=== PATIENT | female | born 1960 | race Caucasian/White ===

== ENCOUNTER 2018-04-14 05:59 | Inpatient (IN) | payer OTHER ==
[~2018-04-14] VITALS: Ht 160 cm; Wt 101.0 kg
[2018-04-14 07:31] LABS: PLATELET COUNT 297 x10^3mcL (130-400)
[2018-04-14 07:34] LABS: BASOPHIL % 0 % (0-2); RED CELL DISTRIBUTION WIDTH 14.7 % (11.5-14.5)
[2018-04-14 07:39] LABS: CALCIUM 8.7 mg/dL (8.5-10.1); CHLORIDE SERUM 94 mmol/L (98-107); CREATININE SERUM 0.5 mg/dL (0.6-1.0); GFR1 > 60 mL/min; GLUCOSE SERUM 148 mg/dL (74-106); POTASSIUM SERUM 3.6 mmol/L (3.5-5.1); SODIUM SERUM 128 mmol/L (136-145)
[2018-04-14 07:43] LABS: ALBUMIN 3.8 g/dL (3.4-5.0); ALKALINE PHOSPHATASE 92 U/L (46-116); ALT/SGPT 22 U/L (14-59); AST/SGOT 26 U/L (15-37); BILIRUBIN TOTAL 0.55 mg/dL (0.20-1.00); TOTAL PROTEIN, SERUM 7.2 g/dL (6.4-8.2)
[2018-04-14] MEDS ORDERED: SIMVASTATIN20 M1 (08:08)
[2018-04-14] MEDS ORDERED: TRADJENTA5 M1 (08:08)
[2018-04-14] MEDS ORDERED: HCTZ/LISINOPRIL1 TA2 (08:08)
[2018-04-14 09:31] LABS: MAGNESIUM 1.7 mg/dL (1.8-2.4); PHOSPHOROUS 3.4 mg/dL (2.5-4.9)
[2018-04-14 09:38] LABS: FREE THYROXINE INDEX 2.3 ug/dL (1.4-4.5); T4(THYROXINE) 6.7 ug/dL (4.7-13.3)
[2018-04-14 10:02] LABS: CHOLESTEROL/HDL RATIO 2.3
[2018-04-14 11:17] VITALS: BP 119/56
[2018-04-14 12:59] LABS: microscopic required? NO
[2018-04-14 13:00] VITALS: BP 154/57
[2018-04-14 13:08] LABS: UA SPECIFIC GRAVITY 1.025 (1.005-1.035); urine erythrocyte NEGATIVE (NEGATIVE)
[2018-04-14 13:25] LABS: AMPHETAMINE QUAL UR NONE DETECTED (See below)
[2018-04-14 17:18] VITALS: BP 126/56
[2018-04-14 20:55] VITALS: BP 121/62
[2018-04-15 06:37] VITALS: BP 103/52
[2018-04-15 08:26] VITALS: BP 96/50
[2018-04-15 21:16] VITALS: BP 102/46
[2018-04-16 06:13] VITALS: BP 117/49
[2018-04-16 06:48] LABS: CALCIUM 8.2 mg/dL (8.5-10.1); CARBON DIOXIDE 22.5 mmol/L (21-32); CHLORIDE SERUM 98 mmol/L (98-107); CREATININE SERUM 0.6 mg/dL (0.6-1.0); GFR1 > 60 mL/min; GLUCOSE SERUM 153 mg/dL (74-106); MAGNESIUM 1.8 mg/dL (1.8-2.4); PHOSPHOROUS 2.7 mg/dL (2.5-4.9); POTASSIUM SERUM 3.1 mmol/L (3.5-5.1); SODIUM SERUM 132 mmol/L (136-145)
[2018-04-16 07:03] LABS: BASOPHIL % 0.4 % (0-2); PLATELET COUNT 252 x10^3mcL (130-400)
[2018-04-16 09:11] VITALS: BP 136/64
[2018-04-16 17:20] VITALS: BP 119/55
[2018-04-16 20:40] VITALS: BP 126/62
[2018-04-17 05:52] VITALS: BP 113/61
[2018-04-17 07:20] LABS: CALCIUM 8.4 mg/dL (8.5-10.1); CARBON DIOXIDE 27.7 mmol/L (21-32); CHLORIDE SERUM 99 mmol/L (98-107); CREATININE SERUM 0.5 mg/dL (0.6-1.0); GFR1 > 60 mL/min; GLUCOSE SERUM 122 mg/dL (74-106); SODIUM SERUM 134 mmol/L (136-145)
[2018-04-17 07:35] LABS: BASOPHIL % 0.2 % (0-2); PLATELET COUNT 229 x10^3mcL (130-400); RED CELL DISTRIBUTION WIDTH 14.2 % (11.5-14.5)
[2018-04-17 08:39] VITALS: BP 115/60
[2018-04-17 17:07] VITALS: BP 110/43
[2018-04-17 20:57] VITALS: BP 113/58
[2018-04-18 06:12] VITALS: BP 115/59
[2018-04-18 07:07] LABS: CALCIUM 8.4 mg/dL (8.5-10.1); CARBON DIOXIDE 30.8 mmol/L (21-32); CHLORIDE SERUM 98 mmol/L (98-107); CREATININE SERUM 0.4 mg/dL (0.6-1.0); GFR1 > 60 mL/min; GLUCOSE SERUM 106 mg/dL (74-106); POTASSIUM SERUM 3.4 mmol/L (3.5-5.1); SODIUM SERUM 133 mmol/L (136-145)
[2018-04-18 07:40] LABS: BASOPHIL % 0.4 % (0-2); PLATELET COUNT 243 x10^3mcL (130-400); RED CELL DISTRIBUTION WIDTH 14.3 % (11.5-14.5)
[2018-04-18 08:58] VITALS: BP 119/51
[2018-04-18 17:30] VITALS: BP 152/60
[2018-04-18 18:20] VITALS: BP 118/71
[2018-04-18 20:54] VITALS: BP 119/68
[2018-04-19 01:05] VITALS: Ht 160 cm; Wt 101.0 kg
[2018-04-19 05:38] VITALS: BP 111/57
[2018-04-19 07:47] LABS: CALCIUM 8.6 mg/dL (8.5-10.1); CARBON DIOXIDE 25.7 mmol/L (21-32); CREATININE SERUM 0.6 mg/dL (0.6-1.0); GFR1 > 60 mL/min; GLUCOSE SERUM 152 mg/dL (74-106)
[2018-04-19 08:05] LABS: CHLORIDE SERUM 99 mmol/L (98-107); POTASSIUM SERUM 3.7 mmol/L (3.5-5.1); SODIUM SERUM 131 mmol/L (136-145)
[2018-04-19 09:48] VITALS: BP 112/57
[2018-04-19 10:15] LABS: BASOPHIL % 0.2 % (0-2); PLATELET COUNT 275 x10^3mcL (130-400)
[2018-04-19 10:18] LABS: RED CELL DISTRIBUTION WIDTH 14.6 % (11.5-14.5)
[2018-04-19] MEDS ORDERED: KEFLEX500 M1 PO (15:01)
[2018-04-19] MEDS ORDERED: APAP/HYDROCODON1 T13 PO (15:02)
[2018-04-19 16:13] VITALS: BP 112/57
== END 2018-04-19 17:05 | disposition home or self-care (01) | DRG 493 ==
LOC: ED 05:59 → MU 07:34
PROVIDERS: Emergency Medicine; Internal Medicine; Neuromusculoskeletal Medicine, Sports Medicine
PROC: 01N60ZZ Release Radial Nerve, Open Approach (ICD-10-PCS; 2018-04-15)
PROC: 0PUG07Z Supplement Left Humeral Shaft with Autologous Tissue Substitute, Open Approach (ICD-10-PCS; 2018-04-15)
PROC: 0PSG04Z Reposition Left Humeral Shaft with Internal Fixation Device, Open Approach (ICD-10-PCS; principal; 2018-04-15 13:00)
PROC: 0PSD04Z Reposition Left Humeral Head with Internal Fixation Device, Open Approach (ICD-10-PCS; 2018-04-18)
DX: S42.342A Displaced spiral fracture of shaft of humerus, left arm, initial encounter for closed fracture (principal); E87.1 Hypo-osmolality and hyponatremia; D62 Acute posthemorrhagic anemia; S42.252A Displaced fracture of greater tuberosity of left humerus, initial encounter for closed fracture; S20.212A Contusion of left front wall of thorax, initial encounter; E11.9 Type 2 diabetes mellitus without complications; S44.22XA Injury of radial nerve at upper arm level, left arm, initial encounter; S80.02XA Contusion of left knee, initial encounter; S80.01XA Contusion of right knee, initial encounter; E87.6 Hypokalemia; E66.01 Morbid (severe) obesity due to excess calories; I10 Essential (primary) hypertension; W18.39XA Other fall on same level, initial encounter; Y93.89 Activity, other specified; Y92.018 Other place in single-family (private) house as the place of occurrence of the external cause; Z68.39 Body mass index [BMI] 39.0-39.9, adult
CPT/HCPCS: 76001; 82962; 83880; 84439; 94150; 97530-GP; C1713; J0690; J1170; J2270; J2405; J2550; J2704; J2710; J3010; J3490; J7030; J7050; P9016; Q0092; Q0162

== ENCOUNTER → 2018-05-26 | Outpatient (CLI) | payer OTHER ==
[~2018-05-26] MED LIST: APAP/HYDROCODON1 T13 PO; HCTZ/LISINOPRIL1 TA2; KEFLEX500 M1 PO; SIMVASTATIN20 M1; TRADJENTA5 M1
== END | disposition home or self-care (01) ==
LOC: RD 09:05
DX: S42.302D Unspecified fracture of shaft of humerus, left arm, subsequent encounter for fracture with routine healing (principal); X58.XXXD Exposure to other specified factors, subsequent encounter

== ENCOUNTER 2020-02-18 17:24 | Inpatient (IN) | payer OTHER ==
[~2020-02-18] VITALS: Ht 160 cm; Wt 95.0 kg
[2020-02-18 18:42] LABS: BASOPHIL % 0.4 % (0-2); PLATELET COUNT 384 x10^3mcL (130-400); RED CELL DISTRIBUTION WIDTH 13.9 % (11.5-14.5)
[2020-02-18 18:53] LABS: ALBUMIN 3.6 g/dL (3.4-5.0); BILIRUBIN TOTAL 0.4 mg/dL (0.20-1.00); CALCIUM 9.4 mg/dL (8.5-10.1); CARBON DIOXIDE 18.8 mmol/L (21-32)
[2020-02-18 18:54] LABS: POTASSIUM SERUM 1.5 mmol/L (3.5-5.1); TOTAL PROTEIN, SERUM 8.6 g/dL (6.4-8.2)
[2020-02-18 19:14] LABS: microscopic required? NO
[2020-02-18 19:19] LABS: urine erythrocyte NEGATIVE (NEGATIVE)
[2020-02-18] MEDS ORDERED: TRADJENTA5 M1 (20:07)
[2020-02-18] MEDS ORDERED: ZESTRIL2.5 MG (20:07)
[2020-02-18 21:08] VITALS: BP 121/72
[2020-02-18 21:12] VITALS: Ht 160 cm; Wt 95.0 kg
[2020-02-19 04:31] VITALS: BP 109/56
[2020-02-19 06:41] LABS: BASOPHIL % 0.4 % (0-2); PLATELET COUNT 378 x10^3mcL (130-400); RED CELL DISTRIBUTION WIDTH 13.5 % (11.5-14.5)
[2020-02-19 06:44] LABS: ALKALINE PHOSPHATASE 74 U/L (46-116); ALT/SGPT 18 U/L (14-59); AST/SGOT 17 U/L (15-37); BILIRUBIN TOTAL 0.5 mg/dL (0.20-1.00); CALCIUM 9.1 mg/dL (8.5-10.1); CARBON DIOXIDE 21.4 mmol/L (21-32); CHLORIDE SERUM 100 mmol/L (98-107); CREATININE SERUM 0.8 mg/dL (0.6-1.0); GFR1 > 60 mL/min; GLUCOSE SERUM 111 mg/dL (74-106); SODIUM SERUM 134 mmol/L (136-145); TOTAL PROTEIN, SERUM 8.2 g/dL (6.4-8.2)
[2020-02-19 07:42] LABS: ALBUMIN 3.2 g/dL (3.4-5.0); POTASSIUM SERUM 2.2 mmol/L (3.5-5.1)
[2020-02-19 09:10] VITALS: BP 110/60
[2020-02-19 13:28] VITALS: BP 117/60
[2020-02-19 17:30] VITALS: BP 120/68; BP 135/71
[2020-02-19 22:56] VITALS: BP 139/70
[2020-02-20 05:27] VITALS: BP 109/58
[2020-02-20 06:59] LABS: BASOPHIL % 0.4 % (0-2); PLATELET COUNT 321 x10^3mcL (130-400)
[2020-02-20 07:02] LABS: RED CELL DISTRIBUTION WIDTH 14.6 % (11.5-14.5)
[2020-02-20 07:15] LABS: ALKALINE PHOSPHATASE 70 U/L (46-116); ALT/SGPT 18 U/L (14-59); AST/SGOT 16 U/L (15-37); BILIRUBIN TOTAL 0.4 mg/dL (0.20-1.00); CALCIUM 8.9 mg/dL (8.5-10.1); CARBON DIOXIDE 19.9 mmol/L (21-32); CHLORIDE SERUM 103 mmol/L (98-107); CREATININE SERUM 0.7 mg/dL (0.6-1.0); GFR1 > 60 mL/min; GLUCOSE SERUM 111 mg/dL (74-106); MAGNESIUM 1.9 mg/dL (1.8-2.4); SODIUM SERUM 135 mmol/L (136-145); TOTAL PROTEIN, SERUM 7.6 g/dL (6.4-8.2)
[2020-02-20 07:18] LABS: ALBUMIN 3.1 g/dL (3.4-5.0)
[2020-02-20 09:18] VITALS: BP 120/70
[2020-02-20] MEDS ORDERED: K-TAB20 MEQ PO (09:24)
[2020-02-20 13:41] VITALS: BP 125/52
[2020-02-20 17:32] VITALS: BP 112/72
[2020-02-20 17:53] VITALS: BP 112/72
[2020-02-20 20:47] LABS: CREATININE UR 47.1 mg/dL (0.60-1.80)
== END 2020-02-20 18:35 | disposition home or self-care (01) | DRG 641 ==
LOC: ED 17:24 → DU 19:53
PROVIDERS: Emergency Medicine; Internal Medicine Nephrology; ADMIT Internal Medicine Pulmonary Disease; ATTEND Internal Medicine Pulmonary Disease
DX: E87.6 Hypokalemia (principal); E66.9 Obesity, unspecified; E78.5 Hyperlipidemia, unspecified; Z68.37 Body mass index [BMI] 37.0-37.9, adult; E11.65 Type 2 diabetes mellitus with hyperglycemia; E87.1 Hypo-osmolality and hyponatremia; Z88.8 Allergy status to other drugs, medicaments and biological substances; Z91.018 Allergy to other foods; Z79.899 Other long term (current) drug therapy; Z79.84 Long term (current) use of oral hypoglycemic drugs
CPT/HCPCS: 82962; G0378; J3475; J3480; J7030; Q0092

== ENCOUNTER 2020-05-15 12:07 | Inpatient (IN) | payer OTHER, SELFPAY ==
[~2020-05-15] VITALS: Ht 160 cm; Wt 97.5 kg
[~2020-05-15 12:07] MED LIST changes: +K-TAB20 MEQ PO; +ZESTRIL2.5 MG
[2020-05-15 12:16] VITALS: Ht 160 cm; Wt 97.5 kg
--- NOTE | 2020-05-15 12:20 | NUR ---
PT BIB [facility] C/O NAUSEA AND VOMITING X 1 DAY. MEDIC REPORTS GENERALIZED WEAKNESS X 1 DAY. PER MEDIC, PT WAS STANDING UP WHEN SHE FELT WEAK AND FELL TO HER KNEES. MEDIC REPORTS PT WAS NOT ABLE TO GET BACK UP ON HER OWN. PT DENIES HEAD INJURY OR LOC DURING FALL. PT SPEAKING IN FULL, CLEAR SENTENCES. PT C/O VOMITING X 1 DAY. PER PT VOMIT WAS "CLEAR AND WHATEVER I LAST ATE". PT DENIES ANY HEADACHES OR DIZZINESS. PER PT "I FEEL LIKE I HAVE THE FLU". PT AAOX4, RESP E/U. PT NOTED UNABLE TO MOVE LEGS OR ARMS ON HER OWN AT THIS TIME. PT GOWNED AND PLACED ON FULL CM,NSR NOTED. WILL CONTINUE TO MONITOR
--- NOTE | 2020-05-15 12:26 | NUR ---
DR BOBO AT THE BEDSIDE FOR MSE TO PT.
[2020-05-15 13:23] LABS: RED CELL DISTRIBUTION WIDTH 16.7 % (11.5-14.5)
--- NOTE | 2020-05-15 13:30 | NUR ---
REPORT GIVEN TO JUAN FRANCISCO RIOS. SHE WILL ASSUME FURTHER CARE OF THIS PT
[2020-05-15 13:50] LABS: ALBUMIN 3.8 g/dL (3.4-5.0); ALKALINE PHOSPHATASE 115 U/L (46-116); ALT/SGPT 22 U/L (14-59); AST/SGOT 20 U/L (15-37); BILIRUBIN TOTAL 0.4 mg/dL (0.20-1.00); C REACTIVE PROTEIN 3.3 mg/dL (<=0.9); CALCIUM 10.2 mg/dL (8.5-10.1); CARBON DIOXIDE 14.1 mmol/L (21-32); CHOLESTEROL 145 mg/dL (<200); GFR1 60 mL/min; GLUCOSE SERUM 186 mg/dL (74-106); HDL CHOLESTEROL 54 mg/dL (40-60); LACTIC DEHYDROGENASE (LDH) 124 U/L (100-190); LIPASE 70 IU/L (73-393); MAGNESIUM 2.6 mg/dL (1.8-2.4); T4(THYROXINE) 8.6 ug/dL (4.7-13.3)
--- NOTE | 2020-05-15 14:03 | NUR ---
PT TO BE ADMITTED FOR GENERAL WEAKNESS; CRITICAL RESULT RECD; UPDATED PROVIDER; PT COMPLETED CT, JOHN WELL
[2020-05-15 14:09] LABS: UA SPECIFIC GRAVITY 1.015 (1.005-1.035); microscopic required? YES; urine erythrocyte 2+ (NEGATIVE)
[2020-05-15 14:11] LABS: BAND NEUTROPHIL 2 % (0-10); MONOCYTE 3 % (0-7); SEGMENTED NEUTROPHILS 87 % (37-75); rbc morphology (normal/abnorm) NORMAL (NORMAL)
[2020-05-15 14:19] LABS: TOTAL PROTEIN, SERUM 8.9 g/dL (6.4-8.2)
--- NOTE | 2020-05-15 14:19 | NUR ---
REPORT RECEIVED FROM JUAN FRANCISCO RIOS. I WILL ASSUME FURTHER CARE OF THIS PT
[2020-05-15 14:25] LABS: PLATELET COUNT 563 x10^3mcL (130-400)
[2020-05-15 14:37] LABS: SODIUM SERUM 137 mmol/L (136-145)
[2020-05-15 14:38] LABS: CHLORIDE SERUM 10 mmol/L (98-107)
[2020-05-15 14:40] LABS: AMPHETAMINE QUAL UR NONE DETECTED (See below)
[2020-05-15] MEDS ORDERED: ZESTRIL2.5 MG PO (14:47)
--- NOTE | 2020-05-15 15:09 | NUR ---
PT RETURNED TO ER FLOOR FROM CT
--- NOTE | 2020-05-15 15:30 | NUR ---
PT HR NOTED DROPPING TO 20-29 BPM. PT STATES "I JUST FEEL REALLY NAUSEOUS RIGHT NOW". PT DENIES ANY PAIN AT THIS TIME. PT SPEAKING IN FULL, CLEAR SENTENCES, NO DISTRESS NOTED. RESP E/U. O2SAT NOTED AT 98%. PT HR NOTED BACK UP AT 80BPM AT THIS TIME. MD AWARE. NO CHANGE IN ORDERS. WILL CONTINUE TO MONITOR
--- NOTE | 2020-05-15 15:50 | NUR ---
SPOKE WITH DR CAMILO , ADMITTING DR REGARDING PT STATUS. INFORMED MD OF CRITICAL LAB VALUES, POTASSIUM 1.1 AND REDRAWM POTASSIUM OF 1.0. PER VERBAL ORDER FROM DR CAMILO, START D5 1/5 40MEQ POTASSIUM IV INFUSION NOW AND GIVE 40MEQ POTASSIUM PO NOW, STOP NORMAL SALINE BOLUS THAT IS CURRENTLY RUNNING WHEN STARTING D5 1/2 40MEQ POTASSIUM INFUSION.
--- NOTE | 2020-05-15 16:00 | NUR ---
WHILE AT THE BEDSIDE DISCUSSING PLAN OF CARE WITH PT, PT HEART RATE NOTED DROPPING TO 17BMP. PT STATES "I FEEL LIKE I NEED TO THROW UP". PT DENIES ANY PAIN. PT SPEAKING IN FULL, CLEAR SENTENCES, PT AAOX4, RESP E/U, NO DISTRESS NOTED. MYSELF AND JUAN FRANCISCO URIBE AT THE BEDSIDE. PT HEART RATE NOTED AT 70BPM FOLLOWING EPISODE OF NAUSEA BEFORE LEAVING PT ROOM. MD AWARE. WILL CONTINUE TO MONITOR.
--- NOTE | 2020-05-15 16:25 | NUR ---
CONFIRMED WITH DR CAMILO TO GIVE PO POTASSIUM 20MEQ AND TO INFUSE D5 1/2 NS 40MEQ AT 80ML/HR. INFORMED DR CAMILO OF PERIODS OF BRADYCARDIA AT 16-20BPM . PER DR CAMILO, CONFIRMED HE WANTS TO ADMIT PATIENT TO TELE UNIT VERSUS ICU WITH BRADYCARDIA EPISODES AND 1.[address]. [address] CAMILO, "HOLD ON K* RIDER PRN UNTIL BNP REDRAW AT 1800." ACCOUNTS PAYABLE TECHNICIAN MIGUEL AND MT PJ MADE AWARE. CALL TRANSFERRED TO ER MD DR GERARDO.
--- NOTE | 2020-05-15 16:50 | NUR ---
REPORT CALLED TO JUAN FRANCISCO DELA CRUZ. HE WILL ASSUME FURTHER CARE OF THIS PT
--- NOTE | 2020-05-15 17:05 | NUR ---
NOTIFIED DOMINGA ROSSOFFICE SERVICES COORDINATOR OF [employer] ABOUT ORDER TO SEND PT TO [facility]. HE WILL CONTACT DR. CAMILO HIMSELF.
[2020-05-15 18:19] VITALS: BP 136/62
--- NOTE | 2020-05-15 18:34 | NUR ---
RECEIVED PT FROM ER, PT ADMIT FOR GENERALIZED WEAKNESS. PT IS A/OX 4, VERBAL RESPONSIVE. LUNG SOUND CLEAR BILATERA, BUT C/O OCCASIONALLY DRY COUGH, DENY ANY SOB. PO2 99% IN ROOM AIR. PT IS ON TELE 27, SR WITH 1ST DEGREE. DENY ANY CHEST PAIN OR DISCOMFORT, BOWEL SOUND PRESENT ALL 4 QUADRANTS, NO DISTENTION, NO TENDER. PEDAL PULSE PRESENT BOTH FEET, TRACE EDEMA BLE. IV AT RIGHT HAND, NO LEAKING, NO INFITLRATION. ALL ADLS ASSIST, ALL NEED MET, CALLL LIGHT IN REACH. WILL CONTINUE TO MONITOR.
--- NOTE | 2020-05-15 18:56 | NUR ---
PT IN BED AWAKE, ALERT, ABLE TO VERBALIZE NEEDS. STILL REPORTS OF OF GENERALIZED WEAKNESS. DENIES PAIN OR DISCOMFORT AT THIS TIME. DENIES SOB, NO ACUTE RESPIRATORY DISTRESS. ON TELE 27, DENIES CHEST PAIN/PRESSURE. STILL C/O MILD NAUSEA. BED OF HEAD ELEVATED. IV SITE TO RIGHT HAND 18G WITH D5 1/2 NS AT 80CC/HR. BED IN LOWEST POSITION. CALL LIGHT WITHIN REACH. WILL ENDORSE ADDITIONAL CARE TO INCOMING RN.
--- NOTE | 2020-05-15 19:30 | NUR ---
RECEIVED PT FROM DAYSMTFT NURSE. PT IS AAOX4, DENIES HEADACHE/NAUSEA/DIZZINESS. PT IS TELE #27, SR WITH BBB, OCCASIONAL SB AND PROLONGED [place] INTERVALS. PT HAS BILATERAL EQUAL PULSES, TRACE EDEMA TO BLE. PT IS CTA, ON RA, DENIES SOB. ABDOMEN IS SOFT AND ROUND, NO PAIN UPON PALPATION. NORMOACTIVE X4 QUADRANTS, LAST BM 05/13, PT COMPLAINTS OF CONSTIPATION. PATIENT HAS HAD POOR PO INTAKE > 3 DAYS, COMPLAINTS OF N/V. PT IS INCONTINENT, BED BOUND, GENERALIZED WEAKNESS. SKIN IS DRY AND INTACT, NO LESIONS NOTED. PT HAS RIGHT HAND IV, SITE INTACT, NO REDNESS OR SWELLING. PT HAS D51/[id number] RUNNING AT 80ML/HR.PT IS CALM AND COOPERATIVE. BED IN LOWEST POSITION, CALL LIGHT WITHIN REACH. WILL CONTINUE TO MONITOR.
[2020-05-15 19:43] LABS: CALCIUM 9.7 mg/dL (8.5-10.1); CARBON DIOXIDE 12.4 mmol/L (21-32); CHLORIDE SERUM 108 mmol/L (98-107); CREATININE SERUM 0.8 mg/dL (0.6-1.0); GFR1 > 60 mL/min; GLUCOSE SERUM 200 mg/dL (74-106); SODIUM SERUM 136 mmol/L (136-145)
--- NOTE | 2020-05-15 20:02 | NUR ---
LAB CALLED FOR CRITICAL LAB VALUE OF K 1.0. CALLED RGARDING HEART RATE FALLING TO 30S, PATIENT DESCRIBES GENERALIZED WEAKNESS, UNABLE TO LIFT UPPER EXTREMITIES, AAXO, DENIES CHEST PAIN/SOB AT THIS TIME. SPOKE TO HIGHWAY ENGINEER JOHN FROM [facility], AWAITING CALL BACK FROM DR. BULLARD. CURRENT HR IS 72BPM, JUNCTIONAL RYTHMN 1ST DEGREE BBB.
--- NOTE | 2020-05-15 20:30 | NUR ---
NEW 22G IV TO LFA. IV TO RIGHT HAND INTACT. NO REDNESS OR SWELLING NOTED.
--- NOTE | 2020-05-15 21:00 | NUR ---
RECEIVED CALL BACK FROM DR. BARRERA REGARDING PATIENT'S STATUS. UPDATED MD REGARDING CHANGE IN HEART RHYTHM, ORDERED EKG AND STAT TROPONIN LEVEL, TELEPHONE ORDER. RT AND LAB CONTACTED REGARDING STAT ORDERS. PATIENT IS STILL FEELING WEAK. NEW IV TO LFA 24G RUNNING 20 MEQ K RIDER AT 50ML/HR FOR 2 HOURS. ALL SAFETY MEASURES IN PLACE. BED IN LOWEST POSITION, CALL LIGHT WITHIN REACH.
--- NOTE | 2020-05-15 21:50 | NUR ---
AT 2140, PAGED AND SPOKE WITH DR. BARRERA, UPDATED ON PATIENT CONDITION RE: FEELING VERY WEAK, CHANGES IN HEART RHYTHM FROM NSR TO 2ND DEGREE AV BLOCK. ONE TIME EPISODE OF LOW HEART RATE AT 30'S ON OUR SHIFT WHILE ON DAY SHIFT AT 1721 HR IN MONITOR READS 24bpm. MADE AWARE THAT ACUITY OF THIS PATIENT IS HIGH THAT NEEDS MONITORING ON THE FLOOR, PLUS WITH POTASSIUM OF 1.1 IS A CRITICAL RESULT THAT NEEDS MORE MONITORING. RIGHT NOW PT IS RECEIVING K RIDER. HOUSE SUP IS AWARE OF THE TRANSFER. AWAITING BED IN ICU
--- NOTE | 2020-05-15 22:17 | NUR ---
RECIEVED MILAD FROM DR. BARRERA. WALDO RECEVIED AND CARRIED OUT.
--- NOTE | 2020-05-15 22:30 | NUR ---
PT TRANSFERRED TO ICU. ALL QUESTIONS/CONCERNS ADDRESSED.
--- NOTE | 2020-05-15 23:35 | NUR ---
ASSUMED CARE / PT STATES SOB AND SOME CHEST PAIN O2 ON PER NC@ 2 L PT STATES SHE FEELS A BIT BETTER. IV POTASSIUM INFUSING AT 80CC AN HOUT AND PO K GIVEN PER DRS ORDERS. PT DOES ADMIT TO SUING A LARGE AMOUNT OF EDIBLES AND STATES SHE WAS VOMITING A LOT AND THAT IS WHY SHE STOPPED USING THEM, PT STATES SHE USES FOR ARTHRITIC PAIN.
--- NOTE | 2020-05-16 02:25 | NUR ---
PT APPEARS TO BE SLEEPING FOR LONG PERIODS / VSS PT REMAINS AFEBRILE. CALLED RE PTS USE OF EDIBLES ORDERS GIVEN FOR AM/ ENTERED BY IRRIGATION EQUIPMENT MECHANIC
--- NOTE | 2020-05-16 02:52 | NUR ---
PT INCONTINENT LG AMOUNT OF URINE / [facility] CATH EST X 1 ATTEMPT / FOR IMMEDIATE CLEAR RETURNS
--- NOTE | 2020-05-16 03:20 | NUR ---
PT STATES SHE IS FEELING A BIT BETTER AT THIS TIME IV INFUSING WELL AND PT TOLERATING WELL.
--- NOTE | 2020-05-16 03:54 | NUR ---
PT SLEEPING FOR LONG PERIODS
[2020-05-16 06:29] LABS: ALKALINE PHOSPHATASE 104 U/L (46-116); ALT/SGPT 21 U/L (14-59); AMYLASE 27 U/L (25-115); AST/SGOT 24 U/L (15-37); CALCIUM 9.5 mg/dL (8.5-10.1); CARBON DIOXIDE 13.1 mmol/L (21-32); CHLORIDE SERUM 112 mmol/L (98-107); CHOLESTEROL 140 mg/dL (<200); CHOLESTEROL/HDL RATIO 2.8; CREATININE SERUM 0.7 mg/dL (0.6-1.0); GFR1 > 60 mL/min; GLUCOSE SERUM 148 mg/dL (74-106); HDL CHOLESTEROL 50 mg/dL (40-60); LIPASE 97 IU/L (73-393); MAGNESIUM 2.6 mg/dL (1.8-2.4); SODIUM SERUM 140 mmol/L (136-145); TOTAL PROTEIN, SERUM 8.1 g/dL (6.4-8.2); TRIGLYCERIDES 97 mg/dL (<150)
[2020-05-16 06:42] LABS: ALBUMIN 3.2 g/dL (3.4-5.0)
[2020-05-16 06:43] LABS: POTASSIUM SERUM 1.3 mmol/L (3.5-5.1)
[2020-05-16 06:50] LABS: BASOPHIL % 0.1 % (0-2)
[2020-05-16 08:00] VITALS: BP 104/49
[2020-05-16 09:35] LABS: PLATELET COUNT 534 x10^3mcL (130-400)
[2020-05-16 12:00] VITALS: BP 114/60
[2020-05-16 16:00] VITALS: BP 123/64
[2020-05-16 16:56] LABS: CALCIUM 9.2 mg/dL (8.5-10.1); CARBON DIOXIDE 10.8 mmol/L (21-32); CHLORIDE SERUM 114 mmol/L (98-107); CREATININE SERUM 0.7 mg/dL (0.6-1.0); GFR1 > 60 mL/min; GLUCOSE SERUM 137 mg/dL (74-106); SODIUM SERUM 139 mmol/L (136-145)
[2020-05-16 17:02] LABS: POTASSIUM SERUM 1.7 mmol/L (3.5-5.1)
--- NOTE | 2020-05-16 19:54 | NUR ---
assumed care vss resps easy pt is no longer requiring o2. afebrile . pt is tolerating diet well and appears to have more movement in limbs at this time.
[2020-05-16 20:40] LABS: CALCIUM 9.1 mg/dL (8.5-10.1); CARBON DIOXIDE 13.3 mmol/L (21-32); CHLORIDE SERUM 112 mmol/L (98-107); CREATININE SERUM 0.8 mg/dL (0.6-1.0); GFR1 > 60 mL/min; GLUCOSE SERUM 124 mg/dL (74-106); SODIUM SERUM 137 mmol/L (136-145)
--- NOTE | 2020-05-16 20:57 | NUR ---
pt given hs care, repositioned and linens changed
--- NOTE | 2020-05-16 20:57 | NUR ---
po norco give for general c/o pain
--- NOTE | 2020-05-16 23:24 | NUR ---
no change in pt condition at this time
--- NOTE | 2020-05-17 03:32 | NUR ---
no chg in pt condition a this time / pt appears to be stronger / ie turning self
[2020-05-17 05:12] LABS: BASOPHIL % 0.2 % (0-2); PLATELET COUNT 385 x10^3mcL (130-400)
[2020-05-17 05:16] LABS: ALBUMIN 2.5 g/dL (3.4-5.0); ALKALINE PHOSPHATASE 89 U/L (46-116); ALT/SGPT 24 U/L (14-59); AMYLASE 19 U/L (25-115); AST/SGOT 41 U/L (15-37); BILIRUBIN TOTAL 0.28 mg/dL (0.20-1.00); CALCIUM 8.6 mg/dL (8.5-10.1); CHLORIDE SERUM 118 mmol/L (98-107); CREATININE SERUM 0.7 mg/dL (0.6-1.0); GFR1 > 60 mL/min; GLUCOSE SERUM 115 mg/dL (74-106); LIPASE 78 IU/L (73-393); MAGNESIUM 2.2 mg/dL (1.8-2.4); TOTAL PROTEIN, SERUM 6.4 g/dL (6.4-8.2)
--- NOTE | 2020-05-17 05:17 | NUR ---
no chg in pt condition at this time pt appears to have slept well on hourly checks. tolerating po flds well no c/o n/v/d. remains afebrile
[2020-05-17 05:25] LABS: SODIUM SERUM 144 mmol/L (136-145)
[2020-05-17 05:26] LABS: POTASSIUM SERUM 2.4 mmol/L (3.5-5.1)
--- NOTE | 2020-05-17 06:24 | NUR ---
CALLED AND LEFT MS FOR DR. WEI REGARDING POTASSIUM LEVEL AND PAGED DR. MORRISON AT THIS TIME. WILL CONTINUE TO MONITOR.
--- NOTE | 2020-05-17 06:44 | NUR ---
po potassium replacementprn order x one dose given. Call out to DR London for [id number] k result of 2,4
--- NOTE | 2020-05-17 07:00 | NUR ---
no call back from at this time dayana beavers aware
[2020-05-17 08:00] VITALS: BP 148/69
--- NOTE | 2020-05-17 09:40 | NUR ---
MD NICE AT BEDSIDE, PER DIET CHANGED TO REGULAR, k-RIDER W/ LIDOCAINE ADMINISTERED, AND PO POSTASSIUM, WILL TRANSFER TO [facility] AFTER 1400 IF NO ARRYTHMIAS, WILL CONT TO MONITOR
--- NOTE | 2020-05-17 12:00 | NUR ---
LATE ENTRY, PER MD ERIBERTO CASTELLANOS AT BEDSIDE, WANTS 120MEQ OF KRIDER AT THIS TIME, WILL START 24HR URINE POTASSIUM COLLECTION
[2020-05-17 13:50] LABS: CREATININE UR 25.8 mg/dL
--- NOTE | 2020-05-17 14:00 | NUR ---
REPORT GIVEN TO JUAN FRANCISCO WALTON, ALL QUESTIONS AND CONCERNS ANSWERED
[2020-05-17 16:04] LABS: CALCIUM 8.1 mg/dL (8.5-10.1); CARBON DIOXIDE 11.3 mmol/L (21-32); CHLORIDE SERUM 114 mmol/L (98-107); CREATININE SERUM 0.7 mg/dL (0.6-1.0); GFR1 > 60 mL/min; GLUCOSE SERUM 135 mg/dL (74-106); SODIUM SERUM 139 mmol/L (136-145)
[2020-05-17 16:28] LABS: POTASSIUM SERUM 2.6 mmol/L (3.5-5.1)
--- NOTE | 2020-05-17 16:50 | NUR ---
Initial Nutrition Assessment: ICU 9 DENILSON JOSEPH 59F HR Nursing Trigger: Poor PO >3 days Dx: Generalized weakness PMHx: HTN, GERD, DM PSHx: none Labs: (05/17) K 2.4L, CL 118H, CO2 12.0L, BG 115H, ALT 2.5L, AST 41H, ALK 89, Amylase 19L, WBC 19.0H, RBC 3.67L, H/H 10.5L/31L, NEUT% 86.4H, LYMPH% 9.6L, (05/15) K 1.0L, HbA1C 5.8, PH 7.35L, PCO2 17.7, PO2 105.1H, HCO3 9.4L Meds: Klor-Con M2O, Ampicillin, [place], Colace, Humulin R, Zofran, Metronidazole, Magnesium * no BP medication Diet: Regular PO intake since admission: (05/16) Full liquid B: 50%, L:50%, D:50%, average 50% x 3 meals Ht: 160 cm/63 in Wt: 97.5 kg/214.5 lbs BMI: 38.1 kg/m2 Bed scale: 100 kg/220 lbs IBW: 54 kg/118 lbs %IBW: 182% ABW: 65kg/142 lbs UBW: 97.7 kg/215 lbs two months ago per pt Age: 59 y/o Food Allergies: ximena per pt Edema: trace edema BLE Last BM: 05/15 per pt Skin: intact Jacinto: 19 Per H and P (05/16/20) This is a 59-year-old obese diabetic female with past medical history of hypertension who presents to the emergency room with complaints of epigastric abdominal pain along with nonbilious and non-bloody vomiting along with significant nausea for the last 2 to 3 days which was not improving. Patient denies any sick contacts with COVID-19 and denies any fever or chills and has no cough. Patient has no chest pain or pressure and has no palpitations. Patient does have history of a similar episode back in January 2020 when she was found to have significant hypokalemia but apparently patient is not taking any potassium supplements that she was prescribed. Pt was admitted with dx: Intractable nausea and vomiting, possible diabetic gastroparesis pain, severe hypokalemia due to nausea and vomiting, leukocytosis of unclear etiology. May be due to underlying urinary tract infection. Diabetes mellitus type 2. History of hypertension. Dehydration. RD Note (05/17/20) Per progress note (05/17) potassium improved to 2.4, feels much better. During visit, pt was comfortable resting in bed, she was awake, verbally responsive and oriented. Pt reported her appetite is improving, and she is tolerating her diet well. Per pt, she stated she is allergic to ximena which causes her skin rashes. Per pt, she has had some nauseas this morning, and she denied V/D/C. Pt reported usual body weight of 2015 lbs two months ago, and she also reported recent weight loss, but she did not know how much. Per pt, she takes Calcium and electrolytes at home. She does not follow any special diet at home, but she has been educating herself about healthy eating, and tries to consume vegetables (cucumber), nuts, and meats. Per pt, she does not exercise at home. Pt's PO intake is average 50% x 3 meals which meets 94% of her energy needs and 76% of her protein needs. Problem with: Nausea per pt. V/D/C: none per pt Problems with: Chewing: Swallowing: none per pt Current appetite: improving per pt Recent wt change: weight loss but pt did not know how much %wt change: n/a Height: 62 in Vitamin/Supplement use: Calcium and Electrolytes Special diet at home: none per pt Physical activity: none per pt Nutrition education given (specify specific nutrition education and handout given): Pt received nutritional education about the importance of eating carbohydrates in moderation/portions. Explained portions of carbohydrates and provided examples. Explained how to read food label for carbohydrate counting. Written material: "Carbohydrate Counting for People with Diabetes," and "Diabetes Label Readings Tips" from [facility] were provided to pt and he acknowledge understanding. Food-drug interactions? Education given? n/a Estimated Nutritional Needs Based on adjusted body weight (65 kg) Energy: 1430 - 1625 kcal/day (22 - 25 kcal/kg for weight reduction) Protein: 78 - 98 g/day (1.2 - 1.5 g/kg for weight reduction) Fluid: 1430 - 1625 mL/day (1 mL/kcal) Nutrition Diagnosis: 1. Altered nutrition related lab values r/t diabetes a/e/b pt's BG 115 and HbA1C 5.8 (controlled DM) Intervention 1. Recommend CCHO 60 gm as tolerated 2. Recommend Glucerna QD (220 kcal and 10g protein) Dr. Reyes said he will f/u with pt's PO intake tomorrow and then determine if he will change the diet. Monitor/Evaluate Goal: PO intake at least 75% of estimated needs Monitor: PO intake, Labs, GI function F/U in 2-3 days as high risk 05/19-
--- NOTE | 2020-05-17 16:50 | NUR ---
1. Recommend CCHO 60 gm as tolerated 2. Recommend Glucerna QD (220 kcal and 10g protein)
--- NOTE | 2020-05-17 19:59 | NUR ---
REPORT GIVEN TO MEGHANN CHICAS, ENDORSED 24HR URINE COLLECTION AND ELEAZAR AROUND THE CLOCK
--- NOTE | 2020-05-17 20:19 | NUR ---
RECEIVED PT FROM ICU NURSE VIA WHEELCHAIR. PT STABLE. A/OX4. ABLE TO MAKE NEEDS KNOWN. SPEECH CLEAR. VITAL SIGNS ARE BP 128/60 (89), HR 97, O2 98, TEMP 98.4, RR 24, PT DENIES PAIN AT THIS TIME. ON TELE#11 READING NSR, PT DENIES CHEST PAIN OR PRESSURE. RR EVEN AND LABORED ON RA, SATURATION 98%. PT STATES THAT SHE HAS DIFFICULTY BREATHING UPON EXERTION BUT "WILL CALM DOWN". BOWEL SOUNDS ACTIVE. PT STATES LAST BM WAS ON 05/15/20. PT HAS [facility] CATH IN PLACE, 24 HOUR URINE COLLECTION IS CURRENTLY BEING MONITORED. GENERALIZED WEAKNESS NOTED. AMBULATORY. PT REQUESTED BEDSIDE COMMODE. SKIN INTACT. PT DENIES PAIN AT THIS TIME. IV TO R HAND, LFA, AND L WRIST, ALL PATENT AND INTACT. CALL LIGHT PLACED WITHIN REACH. BED IN LOWEST POSITION. WILL CONTINUE TO MONITOR.
--- NOTE | 2020-05-17 21:40 | NUR ---
PT C/O SOB. RR EVEN AND LABORED ON RA, SATURATION 98%. PT EXPLAINED SHE GETS SOB EASILY WITH EXERTION. PLACED PT ON 1L NC FOR COMFORT MEASURES. WILL CONTINUE TO MONITOR.
--- NOTE | 2020-05-18 06:32 | NUR ---
PT AWAKE RESTING IN BED AT THIS TIME. NO SIGNS OF ACUTE DISTRESS NOTED. PT HAD A DRY COUGH THROUGHOUT THE NIGHT AND C/O DIFFICULTY BREATHING. OXYGEN SATURATION WAS 98% ON RA, PROVIDED PT WITH 1L O2 FOR COMFORT MEASURES. 24 HOUR URINE COLLECTION IS COMPLETE AT 0700 TODAY 05/18, WILL TAKE SAMPLE DOWN TO LAB. NO C/O PAIN OR DISCOMFORT. IV'S PATENT AND INTACT, NO SIGNS OF INFILTRATION NOTED. ALL NEEDS/CONCERNS ADDRESSED THROUGHOUT THE SHIFT. WILL ENDORSE CARE TO ONCOMING SHIFT NURSE.
[2020-05-18 06:35] VITALS: BP 126/65
--- NOTE | 2020-05-18 07:10 | NUR ---
RECEIVED PT FROM NIGHT RN. PT RESTING IN BED, AAOX4. RES E/U, NO SOB ON RA. TELE MONITOR 11 SHOWING SR, DENIES CP/PRESSURE. EDEMA TO BLE/BUE NOTED. [facility] CATHETER DRAINING TO GRAVITY W YELLOW URINE NOTED. IV SITE TO R HAND SL AND LFA TKO, BOTH IV SITES CDI AND PATENT. NO ACUTE DISTRESS NOTED. DENIES PAIN/DISOMCOFT.
[2020-05-18 07:19] LABS: BASOPHIL % 0.1 % (0-2); PLATELET COUNT 378 x10^3mcL (130-400)
[2020-05-18 07:29] LABS: ALKALINE PHOSPHATASE 98 U/L (46-116); ALT/SGPT 21 U/L (14-59); AMYLASE 26 U/L (25-115); AST/SGOT 54 U/L (15-37); CALCIUM 8.2 mg/dL (8.5-10.1); CARBON DIOXIDE 14.1 mmol/L (21-32); CHLORIDE SERUM 115 mmol/L (98-107); CREATININE SERUM 0.7 mg/dL (0.6-1.0); GFR1 > 60 mL/min; GLUCOSE SERUM 112 mg/dL (74-106); LIPASE 169 IU/L (73-393); MAGNESIUM 2.1 mg/dL (1.8-2.4); POTASSIUM SERUM 3.4 mmol/L (3.5-5.1); SODIUM SERUM 139 mmol/L (136-145); TOTAL PROTEIN, SERUM 6.5 g/dL (6.4-8.2)
[2020-05-18 07:30] LABS: ALBUMIN 2.6 g/dL (3.4-5.0)
[2020-05-18 07:40] LABS: RED CELL DISTRIBUTION WIDTH 17.4 % (11.5-14.5)
[2020-05-18 07:54] VITALS: BP 129/81
[2020-05-18 11:49] VITALS: BP 143/91
[2020-05-18] MEDS ORDERED: KLOR-CON M2020 MEQ PO (11:49)
[2020-05-18] MEDS ORDERED: TYL325 PO (11:49)
[2020-05-18] MEDS ORDERED: METRONIDAZOLE500 M1 PO (11:52)
[2020-05-18] MEDS ORDERED: CIPRO500 MG PO (11:52)
[2020-05-18] MEDS ORDERED: FORTAMET500 M1 PO (11:52)
--- NOTE | 2020-05-18 12:01 | NUR ---
DIETITIAN CO-SIGN The Nutrition Notes documented by the Neonatologist have been reviewed. Reviewed/Co-Signed by: Valentin Bae Documentation Done by: Sherice Mims
[2020-05-18 14:14] VITALS: BP 143/91
[2020-05-18 14:33] LABS: CALCIUM 8.5 mg/dL (8.5-10.1); CHLORIDE SERUM 113 mmol/L (98-107); CREATININE SERUM 0.7 mg/dL (0.6-1.0); GFR1 > 60 mL/min; GLUCOSE SERUM 167 mg/dL (74-106); POTASSIUM SERUM 3.1 mmol/L (3.5-5.1); SODIUM SERUM 136 mmol/L (136-145)
[2020-05-18 15:29] LABS: UA SPECIFIC GRAVITY 1.015 (1.005-1.035); microscopic required? YES; urine erythrocyte 3+ (NEGATIVE)
--- NOTE | 2020-05-18 16:10 | NUR ---
DR WEI MADE AWARE OF K+ LEVEL OF 3.1 AND CO2 13. RECEIVED ORDERS. PER DR WEI PT OKAY TO GO HOME
[2020-05-18 16:16] VITALS: BP 131/66
--- NOTE | 2020-05-18 16:18 | NUR ---
DR WEI MADE AWARE K+ LEVEL 3.1 AND CO2 13.0
--- NOTE | 2020-05-18 17:01 | NUR ---
CALLED DR RAMANA MD MADE AWARE OF K LEVEL 3.1. PER , PT CAN GO HOME AFTER K REPLACEMENT
--- NOTE | 2020-05-18 18:00 | NUR ---
PRINTED AND EXPLAINED DISCHARGE INSTRUCTIONS TO PATIENT. DISCHARGE INSTRUCTIONS INCLUDE MEDICATIONS, PRESCRIPTIONS, FOLLOW UP WITH NEPHROLOGY, AND WORSENING SYMPTOMS. ALL NEEDS MET AND CONCERNS ADDRESSED. ID WRISTBAND REMOVED. TELE MONITOR REMOVED. REMOVED IV TO R HAND, L WRIST, AND LFA. ALL IV CATHETERS INTACT. ALL BELONGINGS WITH PATIENT. PT TAKEN DOWN TO LOBBY VIA WHEELCHAIR ACCOMPANIED BY BUILDING SUPERINTENDENT.
== END 2020-05-18 18:00 | disposition home health service (06) | DRG 641 ==
LOC: ED 12:07 → DU 14:38 → IC 22:28 → DU 23:07 → IC 23:52 → DU 05-17 20:11
PROVIDERS: Emergency Medicine; Internal Medicine; ADMIT Hospitalist; ATTEND Hospitalist
DX: E87.6 Hypokalemia (principal); E11.9 Type 2 diabetes mellitus without complications; I10 Essential (primary) hypertension; E78.00 Pure hypercholesterolemia, unspecified; D72.829 Elevated white blood cell count, unspecified; M19.90 Unspecified osteoarthritis, unspecified site; E11.43 Type 2 diabetes mellitus with diabetic autonomic (poly)neuropathy; K31.84 Gastroparesis; E86.0 Dehydration; E87.2 Acidosis; E66.9 Obesity, unspecified; Z20.828 Contact with and (suspected) exposure to other viral communicable diseases; Z88.8 Allergy status to other drugs, medicaments and biological substances; Z91.018 Allergy to other foods; Z82.49 Family history of ischemic heart disease and other diseases of the circulatory system; Z79.84 Long term (current) use of oral hypoglycemic drugs; Z68.39 Body mass index [BMI] 39.0-39.9, adult
CPT/HCPCS: 36600; 82962; 83880; 85378; 87804; G0378; G0480; J0295; J0696; J1650; J2405; J3480; J3490; J7030; J7040; J7050; Q0092